=== PATIENT | male | born 1990 | race Caucasian/White ===

== ENCOUNTER 2018-07-02 22:30 | Emergency (ER) | payer SELFPAY ==
--- NOTE | 2018-07-02 23:07 | EDPHYS ---
Physician Documentation [facility] Name: Giuliano Walsh Age: 28 yrs Sex: Male : 1990 Arrival Date: 07/02/2018 Time: 22:34 Bed 24 Private MD: Alfonso Montalvo T ED Physician Seven Tirado HPI: 07/02 23:13 This 28 yrs old Male presents to ER via Ambulatory with complaints of Finger snw Injury. 23:13 Trauma demographics: County: The injury occurred in [place] Location of Injury: The snw injury occurred gym, Date: July 02, 2018. Mechanism of injury: struck index finger on weight bar. Associated injuries: The patient sustained dorsal aspect of proximal phalanx of right index finger, contusion, painful injury, swelling. Onset: The symptoms/episode began/occurred suddenly, just prior to arrival. The patient has not experienced similar symptoms in the past. It is unknown whether or not the patient has recently seen a physician. - Immunization history:: Last tetanus immunization: unknown, Flu vaccine is not up to date. - Social history:: Smoking status: Patient/guardian denies using tobacco, Patient/guardian denies using alcohol, street drugs. - Ebola Screening: : Patient negative for fever greater than or equal to 101.5 degrees Fahrenheit, and additional compatible Ebola Virus Disease symptoms Patient denies exposure to infectious person Patient denies travel to an Ebola-affected area in the 21 days before illness onset. ROS: 23:12 Constitutional: Negative for fever, chills, and weight loss, Eyes: Negative for injury, snw pain, redness, and discharge, ENT: Negative for injury, pain, and discharge, Neck: Negative for injury, pain, and swelling, Cardiovascular: Negative for chest pain, palpitations, and edema, Respiratory: Negative for shortness of breath, cough, wheezing, and pleuritic chest pain, Abdomen/GI: Negative for abdominal pain, nausea, vomiting, diarrhea, and constipation, Back: Negative for injury and pain, : Negative for injury, bleeding, discharge, and swelling, Skin: Negative for injury, rash, and discoloration, Neuro: Negative for headache, weakness, numbness, tingling, and seizure. 23:12 MS/extremity: Positive for injury or acute deformity, contusion, decreased range of motion, pain, swelling, tenderness, of the lateral aspect of right hand. Exam: 23:10 Constitutional: This is a well developed, well nourished patient who is awake, alert, snw and in no acute distress. Head/Face: Normocephalic, atraumatic. Eyes: Pupils equal round and reactive to light, extra-ocular motions intact. Lids and lashes normal. Conjunctiva and sclera are non-icteric and not injected. Cornea within normal limits. Periorbital areas with no swelling, redness, or edema. ENT: Nares patent. No nasal discharge, no septal abnormalities noted. Tympanic membranes are normal and external auditory canals are clear. Oropharynx with no redness, swelling, or masses, exudates, or evidence of obstruction, uvula midline. Mucous membranes moist. Neck: Trachea midline, no thyromegaly or masses palpated, and no cervical lymphadenopathy. Supple, full range of motion without nuchal rigidity, or vertebral point tenderness. No Meningismus. Chest/axilla: Normal chest wall appearance and motion. Nontender with no deformity. No lesions are appreciated. Cardiovascular: Regular rate and rhythm with a normal S1 and S2. No gallops, murmurs, or rubs. Normal PMI, no JVD. No pulse deficits. Respiratory: Lungs have equal breath sounds bilaterally, clear to auscultation and percussion. No rales, rhonchi or wheezes noted. No increased work of breathing, no retractions or nasal flaring. Abdomen/GI: Soft, non-tender, with normal bowel sounds. No distension or tympany. No guarding or rebound. No evidence of tenderness throughout. Back: No spinal tenderness. No costovertebral tenderness. Full range of motion. Skin: Warm, dry with normal turgor. Normal color with no rashes, no lesions, and no evidence of cellulitis. Neuro: Awake and alert, GCS 15, oriented to person, place, time, and situation. Cranial nerves II-XII grossly intact. Motor strength 5/5 in all extremities. Sensory grossly intact. Cerebellar exam normal. Normal gait. 23:10 Musculoskeletal/extremity: Extremities: grossly normal except: noted in the dorsal aspect of proximal phalanx of right index finger: contusion, swelling, tenderness, ROM: limited active range of motion due to pain, Circulation is intact in all extremities. Sensation intact. Joints: All joints appear normal with full range of motion. Vital Signs: 22:35 BP 131 / 81; Pulse 76; Resp 18; Temp 98.8(O); Pulse Ox 98% on R/A; Weight 95.25 kg (R); fc Height 5 ft. 8 in. (172.72 cm) (R); Pain 7/10; 22:35 Body Mass Index 31.93 (95.25 kg, 172.72 cm) fc MDM: 22:58 Patient medically screened. snw 23:12 Data reviewed: vital signs, nurses notes. Data interpreted: Pulse oximetry: on room air snw is 98 %. Interpretation: normal. Counseling: I had a detailed discussion with the patient and/or guardian regarding: the historical points, exam findings, and any diagnostic results supporting the discharge/admit diagnosis, the presence of at least one elevated blood pressure reading (>120/80) during this emergency department visit, radiology results, the need for outpatient follow up, for definitive care, to return to the emergency department if symptoms worsen or persist or if there are any questions or concerns that arise at home. Special discussion: I have referred the patient to see his PCP for further evaluation of high blood pressure. Based on the history and exam findings, there is no indication for further emergent testing or inpatient evaluation. I discussed with the patient/guardian the need to see the orthopedic surgeon for further evaluation of the symptoms. I discussed with the patient/guardian the need to see the primary care provider for further evaluation of the symptoms. 07/02 22:49 Order name: Hand Right 3 View XRAY 07/02 23:10 Order name: Santos wrap-joint; Complete Time: 23:12 snw 07/02 23:10 Order name: Ice pack; Complete Time: 23:10 snw Administered Medications: No medications were administered Disposition: 07/03 01:30 Co-signature as Attending Physician, Seven Tirado MD. rn Disposition: 07/02/18 23:06 Discharged to Home. Impression: Contusion of right hand. - Condition is Stable. - Discharge Instructions: Elastic Bandage and RICE, Hand Contusion, Cryotherapy. - Prescriptions for Diclofenac Sodium 75 mg Oral Tablet Sustained Release - take 1 tablet by ORAL route 2 times per day; 30 tablet. - Medication Reconciliation Form, Thank You Letter, Antibiotic Education, Prescription Opioid Use form. - Follow up: Alfonso Montalvo MD; When: 2 - 3 days; Reason: Recheck today's complaints, Continuance of care, Re-evaluation by your physician. Follow up: Emergency Department; When: As needed; Reason: Worsening of condition. Signatures: Dispatcher [employer] ED Starr Conte, PROCESS CONTROL SPECIALIST-C PROCESS CONTROL SPECIALIST-Csnw Ofelia Ray, RN RN Seven Tirado MD MD rn Attema, Lee, RN RN la1 Corrections: (The following items were deleted from the chart) 07/02 23:13 23:06 07/02/2018 23:06 Discharged to Home. Impression: Contusion of right hand. la1 Condition is Stable. Forms are Medication Reconciliation Form, Thank You Letter, Antibiotic Education, Prescription Opioid Use. Follow up: Alfonso Montalvo; When: 2 - 3 days; Reason: Recheck today's complaints, Continuance of care, Re-evaluation by your physician. Follow up: Emergency Department; When: As needed; Reason: Worsening of condition. snw
--- NOTE | 2018-07-02 23:07 | ER ---
Nurse's Notes [facility] Name: Giuliano Walsh Age: 28 yrs Sex: Male : 1990 Arrival Date: 07/02/2018 Time: 22:34 Bed 24 Private MD: Alfonso Montalvo T Diagnosis: Contusion of right hand Presentation: 07/02 22:35 Presenting complaint: Patient states: that he was working out at the gym and when he fc swung his arm really hard he hit his right index finger on the metal bar. Noted swelling and bruising. Transition of care: patient was not received from another setting of care. Onset of symptoms was July 02, 2018 at 19:30. Risk Assessment: Do you want to hurt yourself or someone else? Patient reports no desire to harm self or others. Initial Sepsis Screen: Does the patient meet any 2 criteria? No. Patient's initial sepsis screen is negative. Does the patient have a suspected source of infection? No. Patient's initial sepsis screen is negative. Care prior to arrival: None. 22:35 Method Of Arrival: Ambulatory fc 22:35 Acuity: DEE 4 fc Triage Assessment: 22:35 General: Appears uncomfortable, Behavior is calm, cooperative, appropriate for age. fc Pain: Complains of pain in right hand Pain currently is 7 out of 10 on a pain scale. at worst was 10 out of 10 on a pain scale. Quality of pain is described as aching, throbbing, numb, Pain began 3 hours ago. Is continuous, Aggravated by increased activity, repositioning. EENT: No deficits noted. Neuro: Level of Consciousness is awake, alert, obeys commands, Oriented to person, place, time, situation, Appropriate for age. Cardiovascular: No deficits noted. Respiratory: No deficits noted. GI: No deficits noted. : No deficits noted. Derm: Skin is pink, warm \T\ dry. Musculoskeletal: Circulation, motion, and sensation intact. Capillary refill < 3 seconds, Range of motion: limited in dorsal aspect of proximal phalanx of right index finger Swelling present in dorsal aspect of proximal phalanx of right index finger Reports pain in right hand. Injury Description: Bruise sustained to right hand and dorsal aspect of proximal phalanx of right index finger is purple, was sustained 2-4 hours ago. - Immunization history:: Last tetanus immunization: unknown, Flu vaccine is not up to date. - Social history:: Smoking status: Patient/guardian denies using tobacco, Patient/guardian denies using alcohol, street drugs. - Ebola Screening: : Patient negative for fever greater than or equal to 101.5 degrees Fahrenheit, and additional compatible Ebola Virus Disease symptoms Patient denies exposure to infectious person Patient denies travel to an Ebola-affected area in the 21 days before illness onset. Screenin:54 Abuse screen: Denies threats or abuse. Nutritional screening: No deficits noted. la1 Tuberculosis screening: No symptoms or risk factors identified. Fall Risk None identified. Assessment: 22:53 General: Appears in no apparent distress. Behavior is calm, cooperative. Pain: la1 Complains of pain in dorsal aspect of proximal phalanx of right index finger. Neuro: Level of Consciousness is awake, alert, obeys commands, Oriented to person, place, time, situation. Cardiovascular: Patient's skin is warm and dry. Respiratory: Airway is patent Respiratory effort is even, unlabored. GI: No signs and/or symptoms were reported involving the gastrointestinal system. Musculoskeletal: Circulation, motion, and sensation intact. Capillary refill < 3 seconds, is brisk, in bilateral fingers. Range of motion: intact in all extremities, Swelling present in dorsal aspect of proximal phalanx of right index finger. Vital Signs: 22:35 BP 131 / 81; Pulse 76; Resp 18; Temp 98.8(O); Pulse Ox 98% on R/A; Weight 95.25 kg (R); fc Height 5 ft. 8 in. (172.72 cm) (R); Pain 7/10; 22:35 Body Mass Index 31.93 (95.25 kg, 172.72 cm) ED Course: 22:34 Patient arrived in ED. es 22:34 Alfonso Montalvo MD is Private Physician. es 22:35 Arm band placed on Patient placed in an exam room, on a stretcher. fc 22:51 Starr Conte FNP-C [facility]. snw 22:51 Seven Tirado MD is Attending Physician. snw 22:51 Marc Brunson, EJ is Primary Nurse. la1 22:53 Triage completed. fc 22:55 Call light in reach. la1 22:56 No provider procedures requiring assistance completed. fc 23:05 Alfonso Montalvo MD is Referral Physician. snw 23:08 Hand Right 3 View XRAY In Process Unspecified. EDMS 23:13 Patient did not have IV access during this emergency room visit. la1 Administered Medications: No medications were administered Outcome: 23:06 Discharge ordered by . snw 23:12 Discharged to home ambulatory. la1 23:12 Condition: stable 23:12 Discharge instructions given to patient, Instructed on discharge instructions, follow up and referral plans. medication usage, Demonstrated understanding of instructions, follow-up care, medications, Prescriptions given X 1. 23:13 Patient left the ED. la1 Signatures: Dispatcher [employer] EDAK Starr Conte, [employer] PRODUCTION MANAGER-C [employer] PRODUCTION MANAGER-Csnw Rebekah Sanchez Felicia RN RN Marc Valle RN RN la1
--- NOTE | 2018-07-03 08:45 | RAD REPORT ---
EXAM DESCRIPTION: RAD - Hand Right 3 View - 07/02/2018 11:05 pm CLINICAL HISTORY: PAIN COMPARISON: No comparisons FINDINGS: No fracture or dislocation of the right hand is seen. Mild soft tissue swelling affects th e second digit.
== END 2018-07-02 23:13 | disposition home or self-care (01) ==
LOC: ER 22:30
DX: S60.221A Contusion of right hand, initial encounter (principal); W22.8XXA Striking against or struck by other objects, initial encounter; Y93.9 Activity, unspecified; Y92.39 Other specified sports and athletic area as the place of occurrence of the external cause
CPT/HCPCS: 99283